=== PATIENT | male | born 1960 | race Asian ===

== ENCOUNTER → 2024-02-15 07:18 | Outpatient (REF) | payer OTHER, SELFPAY | LOC: HWRAD 07:18 | DX: R10.11 Right upper quadrant pain (principal); E80.6 Other disorders of bilirubin metabolism | CPT/HCPCS: 76700 ==

== ENCOUNTER 2024-04-06 06:19 | Day surgery (SDC) | payer OTHER, SELFPAY ==
[2024-03-29 13:48] VITALS: BMI 29.2
[2024-04-06] VITALS (10 sets, daily range): BP systolic 108–163; BP diastolic 63–104; BMI 29.2
[2024-04-06 09:11] LABS: Glucose - Point of Care 90 mg/dl (70-99)
--- NOTE | 2024-04-06 09:18 | W.SUR.PREOP ---
Pre-Operative Surgical Note
-
I have examined this patient prior to the performance of the scheduled procedure.
The patient's condition is unchanged from the time of the current History and
Physical and the patient is able to undergo the scheduled procedure.
[2024-04-06] MEDS: TYLENOL 1000 MG PO (09:22)
[2024-04-06] MEDS: NORMOSOL-R/PLASMALYTE-A 1000 IV (09:22)
[2024-04-06 11:33] LABS: Glucose - Point of Care 168 mg/dl (70-99)
--- NOTE | 2024-04-06 14:20 | W.IMMPOSTOP ---
Surgical Immed Post Op Note
-
Primary Surgeon: Escobar Rios MD
Assisting Surgeon: None
Pre-op Diagnosis: Biliary colic
Post-op Diagnosis: Chronic cholecystitis
Procedure Performed: Laparoscopic cholecystectomy with cholangiogram
Anesthesia Type: General
Specimen / Cultures: Gallbladder and contents
Estimated Blood Loss: 7 cc
Complications: None
Operative Findings: Chronically inflamed gallbladder. Top-down cholecystectomy performed with some spillage of small black gallstones. The cystic duct was identified and isolated. A cholangiogram was attempted however there was significant
leaking of contrast preventing us from getting a good image. The cholangiogram was aborted. The duct was ligated with a 0 PDS Endoloop. The gallbladder, stones as well as a 4 x 4 Ray-Ludwin were all removed using a specimen bag.
--- NOTE | 2024-04-06 14:24 | OR.RPT ---
Operative Report
Operative Report
Patient Name: Yasmin Traore
: 1960
Date of Operation: 04/06/2024
Preoperative Diagnosis:Biliary colic
Postoperative Diagnosis: Chronic cholecystitis
Procedure(s):
Laparoscopic Cholecystectomy with Cholangiogram
Surgeon(s):
Dr. Rios
Front Counter Clerk(s):
KAVEH Hector
Anesthesia: General
Estimated Blood Loss: 7 cc
Urine Output: None
Drains/Lines/Implants: None
Specimens:
1. Gallbladder and contents
HPI/Surgical Indications:
This is a 64-year-old [place]ian speaking male with a history of postprandial right upper quadrant abdominal pain. Ultrasound demonstrated cholelithiasis. His history, exam, labs and imaging are consistent with biliary colic.
Risks/Benefits/Alternatives were discussed at length, and the patient agreed to proceed with surgery.
Operative Findings: Chronically inflamed gallbladder. Top-down cholecystectomy performed with some spillage of small black gallstones. The cystic duct was identified and isolated. A cholangiogram was attempted however there was significant
leaking of contrast preventing us from getting a good image. The cholangiogram was aborted. The duct was ligated with a 0 PDS Endoloop. The gallbladder, stones as well as a 4 x 4 Ray-Ludwin were all removed using a specimen bag.
Procedure Description:
The patient was brought to the Operating Room and placed in the supine position with one arm tucked. Following uneventful induction of general endotracheal anesthesia, an orogastric tube was placed. The abdomen was prepped and draped in the usual
sterile fashion. A timeout was performed confirming the procedure, consent, and that IV antibiotics were infused and sequential compression devices were confirmed to be on. The abdomen was entered using a left subcostal Veress technique which
required a single pass followed by a 5 mm right upper quadrant Optiview trocar. Pneumoperitoneum to 15 mmHg pressure was obtained without difficulty and we confirmed that no injury had occurred during our entry. The patient was positioned in
reverse Trendelenberg and rotated with the right side up slightly. Two 5 mm trocars were then placed along the right subcostal margin, followed by a 12 mm port in the epigastrium. The gallbladder initially looked fairly normal. A locking grasping
forceps was placed on the fundus of the gallbladder where it was then retracted cephalad and to the right. Using appropriate grasping instruments, the peritoneum overlying the triangle of Calot was incised and extended superiorly on both the
anterior and posterior gallbladder schwartz. This area however was fairly scarred and so we elected to do a top-down cholecystectomy. The gallbladder wall was violated and so a 4 x 4 Ray-Ludwin was placed in the surgical bed to catch any small gallstones
that fell. The infundibulum was dissected off the cystic plate. The cystic triangle was dissected until a critical view of safety was achieved. The cystic artery was medialized, dissected and controlled with 2 proximal clips and 1 distal and
divided. The cystic duct/gallbladder junction in turn was identified, dissected circumferentially and due to its large size was controlled with a 0 PDS Endoloop proximally. A ductotomy was made and a cholangiocatheter on an Hodges clamp was inserted
into the cystic duct. A C-arm was draped and brought into the field. An intra-operative cholangiogram was performed however we were unable to get good image due to the contrast leaking and so the cholangiogram was aborted. The duct was explored
using a laparoscopic [place] and small black gallstone was removed. We did have some backflow of bile indicating patent cystic duct and the duct also felt fairly soft to palpation. The duct was ligated with a 0 PDS Endoloop. Gallbladder, Ray-Ludwin
and few residual stones were then placed in a Endo Catch bag and removed. The 12 mm port was closed using 0 PDS suture. The remaining ports were removed under direct visualization and pneumoperitoneum evacuated. All trocar sites were closed at
the skin level using 4-0 Monocryl followed by Dermabond. Overall, the patient tolerated the procedure well and was taken to the Recovery Room postoperatively in stable condition.
I was the attending physician and performed the procedure with assistance of the PA above. The assistance of KAVEH Hector was required due to the complexity of the procedure. During the procedure Loren assisted with retraction, resection, and
closure of the wound. I was present for all portions of the case, excluding skin closure.
Escobar Rios MD
== END 2024-04-06 13:30 | disposition home or self-care (01) ==
LOC: SDS 06:19
PROVIDERS: ATTENDING PHYSICIAN Surgery
DX: K80.64 Calculus of gallbladder and bile duct with chronic cholecystitis without obstruction (principal); R10.11 Right upper quadrant pain
CPT/HCPCS: 47563; 88304; 36415; 74300; 76000; 82962; 93005